=== PATIENT | male | born 1950 | race Caucasian/White ===

== ENCOUNTER 2022-01-16 19:40 | Emergency (ER) | payer OTHER, MEDICARE ==
[2022-01-16 20:19] VITALS: BP 131/72; PULSE 102; RESP 20; TEMP 100.1; BMI 24.7
[2022-01-16] MEDS ORDERED: ACETAMINOPHEN 325 MG TABLET (FP) PO ONE (22:54)
== END 2022-01-16 23:30 | disposition home or self-care (01) ==
LOC: JER 19:40
DX: U07.1 COVID-19 (principal)
CPT/HCPCS: 0241U-QW; 99283-25

== ENCOUNTER 2024-05-12 16:39 | Inpatient (IN) | payer OTHER, MEDICARE ==
[2024-05-12 18:23] LABS: ABSOLUTE IMMATURE GRANULOCYTES 0.02 x10^3/uL (0.0-0.031); BASOPHILS # 0.03 x10^3/uL (0.01-0.08); EOSINOPHIL % 1.4 % (0.8-7.0); HEMATOCRIT 27.1 % (40.1-51.0); HEMOGLOBIN 8.9 g/dL (13.7-17.5); MCHC 32.8 g/dl (32.3-36.5); MEAN CELL VOLUME 96.1 fl (79.0-92.2); MEAN PLT VOLUME 9.6 fl (9.4-12.4); MONOCYTE # 0.45 x10^3/uL (0.30-0.82); MONOCYTE % 6.3 % (5.3-12.2); PLATELET COUNT 155 x10^3/uL (163-337)
[2024-05-12 18:41] LABS: POTASSIUM 3.9 mmol/L (3.5-5.1)
[2024-05-12 18:43] LABS: CALCIUM 9.3 mg/dL (8.5-10.1)
[2024-05-12 18:44] LABS: ALBUMIN 4.2 g/dl (3.4-5.0); BLOOD UREA NITROGEN 29.9 mg/dL (7-18)
[2024-05-12 18:47] LABS: CREATININE 2.4 mg/dL (0.55-1.3)
[2024-05-12 18:49] LABS: BILIRUBIN,TOTAL 1.4 mg/dL (0.2-1); TOT PROT 6.8 g/dl (6.4-8.2)
[2024-05-12] MEDS ORDERED: FUROSEMIDE 40 MG/4 ML INJECTABLE VIAL ONE ×2 (19:03→20:36)
[2024-05-12] MEDS: FUROSEMIDE 40 MG/4 ML INJECTABLE VIAL IVPUSH ONE ×2 (19:06→20:50)
[2024-05-12 19:08] LABS: URINE APPEARANCE CLEAR; URINE BILIRUBIN NEGATIVE (NEGATIVE); URINE COLOR YELLOW; URINE GLUCOSE (UA) NEGATIVE (NEGATIVE); URINE KETONE NEGATIVE (NEGATIVE); URINE LEUK ESTERASE NEGATIVE (NEGATIVE); URINE NITRITE NEGATIVE (NEGATIVE); URINE PROTEIN NEGATIVE (NEGATIVE); URINE UROBILINOGEN 0.2 mg/dL (0.2-1.0)
[2024-05-12] MEDS ORDERED: ACETAMINOPHEN 500 MG TABLET (FP) PO PRN (20:36)
[2024-05-12] MEDS ORDERED: DOCUSATE SODIUM 100 MG CAPSULE (FP) PO PRN (20:36)
[2024-05-13 01:14] VITALS: BMI 26.2
[2024-05-13 07:56] LABS: ABSOLUTE IMMATURE GRANULOCYTES 0.02 x10^3/uL (0.0-0.031); BASOPHILS # 0.02 x10^3/uL (0.01-0.08); EOSINOPHIL % 1.5 % (0.8-7.0); EOSINOPHILS # 0.09 x10^3/uL (0.04-0.54); HEMATOCRIT 26.3 % (40.1-51.0); HEMOGLOBIN 8.3 g/dL (13.7-17.5); MCHC 31.6 g/dl (32.3-36.5); MEAN CELL VOLUME 96.7 fl (79.0-92.2); MEAN PLT VOLUME 10.2 fl (9.4-12.4); MONOCYTE # 0.48 x10^3/uL (0.30-0.82); MONOCYTE % 8.2 % (5.3-12.2); PLATELET COUNT 153 x10^3/uL (163-337); RDW 12.9 % (12.2-16.6)
[2024-05-13 08:06] LABS: INR 1.23 (0.83-1.09); PROTHROMBIN TIME (PATIENT) 13.4 SEC (9.7-13.0)
[2024-05-13 08:07] LABS: POTASSIUM 3.6 mmol/L (3.5-5.1)
[2024-05-13 08:08] LABS: ACTIVATED PTT 31.4 SECONDS (25.2-36.5)
[2024-05-13 08:12] LABS: CALCIUM 9.5 mg/dL (8.5-10.1)
[2024-05-13 08:13] LABS: BLOOD UREA NITROGEN 29.2 mg/dL (7-18)
[2024-05-13 08:15] LABS: CREATININE 2.6 mg/dL (0.55-1.3); PHOSPHOROUS 4.4 mg/dL (2.5-4.9)
[2024-05-13] MEDS ORDERED: DOCUSATE SODIUM 100 MG CAPSULE (FP) PO PRN (08:38)
[2024-05-13] MEDS ORDERED: ACETAMINOPHEN 500 MG TABLET (FP) PO PRN (08:38)
[2024-05-13] MEDS: LEVOTHYROXINE NA 75 MCG TABLET (FP) PO SCH (09:32)
[2024-05-13] MEDS: metoPROLOL SUCCINATE 25 MG TAB.SR.24H (FP) PO SCH (12:15)
[2024-05-13 15:52] LABS: BILIRUBIN,DIRECT 0.4 mg/dL (0.0-0.2)
[2024-05-14 06:53] LABS: HEMATOCRIT 26.3 % (40.1-51.0); HEMOGLOBIN 8.6 g/dL (13.7-17.5); MCHC 32.7 g/dl (32.3-36.5); PLATELET COUNT 154 x10^3/uL (163-337); RDW 12.8 % (12.2-16.6)
[2024-05-14 07:15] LABS: POTASSIUM 3.3 mmol/L (3.5-5.1)
[2024-05-14 07:23] LABS: CALCIUM 8.6 mg/dL (8.5-10.1)
[2024-05-14 07:25] LABS: ALBUMIN 3.4 g/dl (3.4-5.0); BLOOD UREA NITROGEN 27.8 mg/dL (7-18)
[2024-05-14 07:27] LABS: CREATININE 2.4 mg/dL (0.55-1.3)
[2024-05-14 07:28] LABS: BILIRUBIN,TOTAL 1.2 mg/dL (0.2-1); TOT PROT 5.7 g/dl (6.4-8.2)
[2024-05-14] MEDS: POTASSIUM CHLORIDE TABS 20 MEQ TABLET.ER (FP) PO ONE (11:50)
[2024-05-15 07:30] LABS: ABSOLUTE IMMATURE GRANULOCYTES 0.01 x10^3/uL (0.0-0.031); BASOPHILS # 0.03 x10^3/uL (0.01-0.08); EOSINOPHIL % 3.5 % (0.8-7.0); EOSINOPHILS # 0.19 x10^3/uL (0.04-0.54); HEMATOCRIT 26.2 % (40.1-51.0); HEMOGLOBIN 8.4 g/dL (13.7-17.5); MCHC 32.1 g/dl (32.3-36.5); MEAN CELL VOLUME 96.7 fl (79.0-92.2); MEAN PLT VOLUME 10.1 fl (9.4-12.4); MONOCYTE # 0.48 x10^3/uL (0.30-0.82); MONOCYTE % 8.8 % (5.3-12.2); PLATELET COUNT 146 x10^3/uL (163-337); RDW 12.8 % (12.2-16.6)
[2024-05-15 07:53] LABS: POTASSIUM 3.7 mmol/L (3.5-5.1)
[2024-05-15 07:56] LABS: ALBUMIN 3.6 g/dl (3.4-5.0); BLOOD UREA NITROGEN 27.2 mg/dL (7-18); CALCIUM 8.7 mg/dL (8.5-10.1)
[2024-05-15 08:00] LABS: CREATININE 2.3 mg/dL (0.55-1.3)
[2024-05-15 08:02] LABS: BILIRUBIN,TOTAL 0.9 mg/dL (0.2-1)
[2024-05-15] MEDS: FUROSEMIDE 40 MG/4 ML INJECTABLE VIAL IVPUSH ONE (10:47)
[2024-05-15] MEDS: TAMSULOSIN HCL 0.4 MG CAP PO ONE (10:50)
[2024-05-16 07:20] LABS: ABSOLUTE IMMATURE GRANULOCYTES 0.01 x10^3/uL (0.0-0.031); BASOPHILS # 0.03 x10^3/uL (0.01-0.08); EOSINOPHIL % 2.6 % (0.8-7.0); EOSINOPHILS # 0.16 x10^3/uL (0.04-0.54); HEMOGLOBIN 8.9 g/dL (13.7-17.5); MEAN CELL VOLUME 94.1 fl (79.0-92.2); MEAN PLT VOLUME 10.1 fl (9.4-12.4); MONOCYTE # 0.46 x10^3/uL (0.30-0.82); MONOCYTE % 7.5 % (5.3-12.2); PLATELET COUNT 146 x10^3/uL (163-337); RDW 12.4 % (12.2-16.6)
[2024-05-16 07:45] LABS: POTASSIUM 3.5 mmol/L (3.5-5.1)
[2024-05-16 07:52] LABS: CALCIUM 8.9 mg/dL (8.5-10.1)
[2024-05-16 07:53] LABS: ALBUMIN 3.5 g/dl (3.4-5.0)
[2024-05-16 07:57] LABS: BILIRUBIN,TOTAL 0.9 mg/dL (0.2-1)
[2024-05-16] MEDS: TAMSULOSIN HCL 0.4 MG CAP PO SCH (09:34)
[2024-05-16 21:08] LABS: ANTIGLOMERULAR BASEMENT MEN.AB <0.2 units (0.0-0.9)
[2024-05-17 07:55] LABS: POTASSIUM 3.3 mmol/L (3.5-5.1)
[2024-05-17 08:15] LABS: CALCIUM 8.8 mg/dL (8.5-10.1)
[2024-05-17 08:16] LABS: BLOOD UREA NITROGEN 18.3 mg/dL (7-18)
[2024-05-17 08:19] LABS: CREATININE 1.7 mg/dL (0.55-1.3)
[2024-05-17] MEDS: POTASSIUM CHLORIDE TABS 20 MEQ TABLET.ER (FP) PO ONE (09:51)
[2024-05-17] MEDS: FINASTERIDE 5 MG TABLET (FP) PO SCH (11:16)
[2024-05-17 13:05] LABS: POTASSIUM 3.8 mmol/L (3.5-5.1)
[2024-05-17 13:07] LABS: CALCIUM 8.9 mg/dL (8.5-10.1)
[2024-05-17 13:08] LABS: ALBUMIN 3.5 g/dl (3.4-5.0); BLOOD UREA NITROGEN 17.1 mg/dL (7-18)
[2024-05-17 13:11] LABS: CREATININE 1.7 mg/dL (0.55-1.3)
[2024-05-17 13:12] LABS: BILIRUBIN,TOTAL 0.9 mg/dL (0.2-1)
[2024-05-17 13:13] LABS: TOT PROT 6.1 g/dl (6.4-8.2)
[2024-05-17 16:07] LABS: C-ANCA <1:20 titer (Neg:<1:20)
[2024-05-17 20:14] VITALS: BP 154/89; PULSE 74; RESP 20; TEMP 97.7
== END 2024-05-17 21:07 | DRG 684 ==
LOC: JER 16:39 → JERBED 20:35 → J6S 22:12 → J4W 05-13 07:04 → OBSVTOIN 05-14 10:42
PROVIDERS: ADMIT Hospitalist; ATTEND Internal Medicine
DX: N17.9 Acute kidney failure, unspecified (principal); N13.30 Unspecified hydronephrosis; D64.9 Anemia, unspecified; R19.5 Other fecal abnormalities; I10 Essential (primary) hypertension; E03.9 Hypothyroidism, unspecified; R33.9 Retention of urine, unspecified
CPT/HCPCS: 36415; 71045-TC-FY; 76775-TC; 76856-TC; 80048; 80053; 81003; 82248; 82607; 82728; 82746; 83516; 83520; 83540; 83550; 83735; 83880; 84100; 84153; 84155; 84165; 84439; 84443; 84484; 85025; 85027; 85610; 85730; 86038; 86256; 87086; 87635; 93005; 93010; 93306-TC; 93970-TC; 99285-25; G0378